=== PATIENT | female | born 1995 | race African-American/Black ===

== ENCOUNTER 2021-05-16 09:37 | Inpatient (IN) | payer OTHER, SELFPAY ==
--- NOTE | 2021-05-15 15:21 | PC.NURSE ---
VERIFIED WITH OR SCHEDULE AND PATIENT--C/S 05/16/21 AT 1200 PATIENT INSTRUCTED TO COME TO OB AT 0930 TOMORROW TO HAVE PRE-OP LAB DRAWN BEFORE SURGERY
[2021-05-16] VITALS (41 sets, daily range): BP systolic 74–123; BP diastolic 43–94; PULSE 42–100; RESP 13–18; TEMP 36.1–36.8; O2SAT 100; BMI 41.6
--- NOTE | 2021-05-16 09:37 | LDADM ---
This patient, Nevaeh Bains, was admitted to Labor/Delivery/Recovery 119 on 05/16/21 at 09:37. Plans for labor, pain management and were discussed with patient. Patient/family oriented to hospital policies and general routines including ID bracelet, bed and alarms, visiting hours, pain management, procedures, bathroom and other care routines, personal items, smoking policy, room service/diet and guest tray routines, infant security routines, and visiting hours. Patient/Family are encouraged to report perceived risks to care and to ask questions if they do not understand what they are told or what they should do. See OBIX for further documentation.
[2021-05-16] MEDS: LACTATED RINGERS 1,000 ML 125 ML IV CONT ×2 (10:20→12:24)
[2021-05-16 10:24] LABS: Basophils Percent Auto 0.4 % (0.2-1.2); Eosinophils Percent Auto 0.7 % (0-4.4); Hematocrit 32.5 % (37.0-47.0); Hemoglobin 10.7 g/dL (12.0-15.0); Immature Granulocyte Absolute 0.04 K/mm3 (0.00-0.031); Immature Granulocyte Percent A 0.7 % (0-0.5); Lymphocytes Absolute Auto 1.31 K/mm3 (0.9-3.2); Lymphocytes Percent Auto 23.6 % (18.3-44.2); Mean Corpuscular HGB Conc 32.9 g/dl (32-36); Mean Corpuscular Hemoglobin 26.5 pg (26-34); Mean Corpuscular Volume 80.4 fl (80-100); Mean Platelet Volume 11.7 fl (7.4-10.4); Monocytes Absolute Auto 0.6 K/mm3 (0.1-0.6); Monocytes Percent Auto 9.9 % (2.6-8.5); Neutrophils Absolute Auto 3.6 K/mm3 (1.3-6.7); Neutrophils Percent Auto 64.7 % (45.5-73.1); Platelet Count Result 170 k/mm3 (150-375); Red Blood Count 4.04 M/mm3 (4.2-5.4); Red Cell Distribution Width 13.4 % (11.5-14.5); White Blood Count 5.6 K/mm3 (4.5-10.0)
--- NOTE | 2021-05-16 10:37 | P.PNAN_ITS ---
Anes - Initial Pre Proc Eval Procedure: Operation Date: 05/16/21 12:00 Proposed Procedures p Section - Chin Garcia MD Date/Time: 05/16/21 10:37 Surgeon: Chin Garcia MD Pre Op Diagnosis: c/s Patient Data Age: 25 Gender: F Height: 1.65 m Weight: 113.5 kg Last Vital Signs Pulse 72 05/16/21 10:31 BP 123/75 05/16/21 10:31 Allergies Allergy/AdvReac Type Severity Reaction Status Date / Time No Known Allergies Allergy Verified 05/15/21 14:44 Laboratory Tests 05/16/21 05/16/21 10:15 10:15 WBC 5.6 K/mm3 K/mm3 (4.5-10.0) RBC 4.04 M/mm3 L M/mm3 (4.2-5.4) Hgb 10.7 g/dL L g/dL (12.0-15.0) Hct 32.5 % L % (37.0-47.0) MCV 80.4 fl fl (80-100) MCH 26.5 pg pg (26-34) MCHC 32.9 g/dl g/dl (32-36) RDW 13.4 % % (11.5-14.5) Plt Count 170 k/mm3 k/mm3 (150-375) MPV 11.7 fl H fl (7.4-10.4) Immature Gran % (Auto) 0.7 % H % (0-0.5) Neut % (Auto) 64.7 % % (45.5-73.1) Lymph % (Auto) 23.6 % % (18.3-44.2) [place] % (Auto) 9.9 % H % (2.6-8.5) Eos % (Auto) 0.7 % % (0-4.4) Baso % (Auto) 0.4 % % (0.2-1.2) Lymph # (Auto) 1.31 K/mm3 K/mm3 (0.9-3.2) [place] # (Auto) 0.6 K/mm3 K/mm3 (0.1-0.6) Eos # (Auto) 0.0 K/mm3 K/mm3 (0-0.3) Baso # (Auto) 0.0 K/mm3 K/mm3 (0.0-0.1) Abs Immat Gran (auto) 0.04 K/mm3 H K/mm3 (0.00-0.031) Absolute Neuts (auto) 3.6 K/mm3 K/mm3 (1.3-6.7) Absolute Nucleated RBC 0.0 K/mm3 K/mm3 (0.0-0.012) Nucleated RBC % 0.0 % % (0.0-0.2) RPR Pending Patient hx anesthesia problems: none Family hx anesthesia problems: none [facility] Past Medical History Medical History (Updated 05/16/21 @ 10:37 by Jesu Thomas MD) Obesity Surgical History Surgical History (Updated 05/16/21 @ 10:37 by Jesu Thomas MD) History of section Family History Family History Other No pertinent family history Social History Social History Substance use: never Spiritual care concerns: No Anes - Eval Final PreProcedure Day of Procedure 05/16/21 10:37 Patient weight: obese Heart: regular rate and rhythm Lungs: clear to auscultation Airway: Mallampati scale class 1 Neurological: alert and oriented Last oral intake: >/= 8 hours ASA classification: II Emergent: no Anesthetic plan: proceed Anesthesia type and monitoring: regional spinal and standard monitoring Informed Consent: The patient's anesthetic plan and its attendant risks and benefits were discussed with the patient/family/POA. Questions were solicited and answers provided to the satisfaction of the patient/family/POA.
--- NOTE | 2021-05-16 10:57 | PM.IMHP ---
H&P: HPI History of Present Illness Date/Time: 05/16/21 10:57This patient is a 25-year-old multi did at term with a previous delivery. We have agreed to perform repeat delivery. She understands the procedure. She understands that injuries may occur that result in hospitalization, more surgery, severe illness. She denies any nausea, vomiting, fever, chills. She denies any chest pain or shortness of breath. She denies any loss of fluid, vaginal bleeding, contractions. Chief Complaint: Term Review of Systems Constitutional: Constitutional: Reports no additional constitutional complaints, Denies fatigue, Denies headache(s), Denies lethargy and Denies weakness Eyes: Eyes: Reports no additional eye complaints, Denies blurry vision and Denies photophobia ENT: Reports as per HPI, Denies headache(s) and Denies neck pain Cardiovascular: Cardiovascular: Denies chest pain, Denies diaphoresis, Denies leg edema, Denies palpitations and Denies dyspnea Respiratory: Respiratory: Denies hemoptysis, Denies dyspnea and Denies wheezing Gastrointestinal: Gastrointestinal: Denies abdominal pain, Denies melena, Denies bloating, Denies hematochezia, Denies nausea and Denies vomiting Genitourinary: Genitourinary: Reports no additional female genitourinary complaints Musculoskeletal: Musculoskeletal: Denies joint swelling, Denies neck pain, Denies numbness and Denies stiffness Neurologic: Denies Abnormal speech present, Denies confusion, Denies headache(s), Denies numbness and Denies weakness Psychiatric: Psychiatric: Denies anxiety, Denies confusion, Denies depression, Denies homicidal ideation and Denies suicidal ideation Endocrine: Endocrine: Denies fatigue and Denies palpitations Allergic/Immunologic: Allergic/Immunologic: Denies wheezing PMFSH Past Medical History Medical History (Updated 05/16/21 @ 10:37 by Jesu Thomas MD) Obesity Surgical History Surgical History (Updated 05/16/21 @ 10:59 by Chin Garcia MD) History of section Family History Family History Other No pertinent family history Social History Social History Smoking status: Former smoker Substance use: never Spiritual care concerns: No Meds Home Medications and Allergies Allergies Allergy/AdvReac Type Severity Reaction Status Date / Time No Known Allergies Allergy Verified 05/15/21 14:44 Vital Signs Vital Signs - 24 hr 05/16/21 10:16 05/16/21 10:31 05/16/21 10:45 Pulse Rate 70 72 64 Blood Pressure 120/68 123/75 117/77 Exam Const: General: healthy appearing, comfortable and no acute distress; No confusion Orientation/consciousness: No confusion Eyes: Direct Ophthalmoscopy: No photophobia Resp: Auscultation: clear to auscultation bilaterally, no rales, no rhonchi and no wheezes Cardio: Rate: regular rate Heart sounds: no click, no murmurs and no rubs GI: Inspection: non-distended GI Palp: No abdominal tenderness Auscultation: normal bowel sounds Neuro: General: No confusion Speech: No Abnormal speech present Extrem: General: normal to inspection, no pedal edema and no calf tenderness H&P: Results Labs Labs: Short CBC 05/16/21 Range/Units 10:15 WBC 5.6 (4.5-10.0) K/mm3 Hgb 10.7 L (12.0-15.0) g/dL Hct 32.5 L (37.0-47.0) % Plt Count 170 (150-375) k/mm3 Assessment and Plan Assessment and plan (1) Previous section: Code(s): Z98.891 - History of uterine scar from previous surgery Status: Acute Assessment and Plan: this patient is a 25-year-old female with previous delivery. She has a term gestation we have agreed to perform repeat delivery. She understands the risks, benefits, and alternatives. She has completed the informed consent process and is ready to proceed.
--- NOTE | 2021-05-16 11:00 | WPDHPUPDATE1 ---
History and Physical Update Update Date/Time: 05/16/21 11:00 History and Physical has been reviewed, including an updated exam of the patient. There are NO changes in the patient's condition. Risks, benefits, and alternatives have been discussed and questions answered. Patient agrees to proceed with procedure.
[2021-05-16] MEDS: ceFAZolin 2 GM/D5W 50 ML 2 GM/50 ML BAG IVPB (11:09)
--- NOTE | 2021-05-16 12:21 | W.PM.PROC2 ---
Procedure Note - Detailed Date of Procedure 05/16/21 Pre-op Diagnosis previous LTCS Post-op Diagnosis same Procedure Performed Low-transverse section Surgeon Chin Garcia MD Anesthesia spinal Indications previous LTCS, term Findings Normal gestational maternal anatomy, average size infant, normal Apgars. Description of Procedure The patient was taken the operating room. She was prepped and draped in dorsal supine position with a leftward tilt. This was done after spinal anesthetic was applied. A low-transverse skin incision was made and carried down till of the fascia with the knife. The fascial incision was made with the knife. The fascial incision was extended laterally with Hooper scissors. The fascia was tented upward superiorly and inferiorly the rectus muscles were dissected off bluntly. The rectus muscles were the midline. The preperitoneal fat and peritoneum were dissected open bluntly at the superior aspect of the rectus muscles. The peritoneal incision was extended superior and inferior with good position of bladder. The uterine incision was made with a scalpel down to the level of the amniotic cavity. The amniotic cavity was entered bluntly. The infant was delivered. The cord was clamped and cut and the infant was handed off to waiting pediatric staff. Cord bloods were obtained. The placenta was removed manually. The uterus was exteriorized. The uterus was cleared of all clots, debris and membranes. The uterus was closed in 0 Vicryl running lock fashion. An imbricating over a was placed along the incision line as well. The uterus was returned to the abdomen. The gutters were cleared of all clots and debris. The fascia was closed with 0 Vicryl running fashion. The subcutaneous tissue was irrigated pinpoint bleeders were cauterized. The skin was closed with subcuticular absorbable lindsay. The skin incision line was covered with glue. The patient tolerated the procedure well. She has taken recovery room in stable condition. Sponge lap and needle counts were correct x2. Estimated Blood Loss 600 Drains No Packing No Pathology none sent Complications No immediate complications Condition stable Disposition PACU
[2021-05-16] MEDS: KETOROLAC 30 MG/ML VIAL (*BKC) IV PUSH (12:43)
[2021-05-16] MEDS: diphenhydrAMINE HCl INJ 50 MG/ML VIAL 25 MG IV PUSH (13:19)
[2021-05-16] MEDS: OXYTOCIN 30 UNITS/NS 500 ML 30 UNITS/500 ML BAG 125 UNITS IV CONT (14:35)
[2021-05-16] MEDS: DEXTROSE 5%/0.45% SOD CHL 1,000 ML 125 ML IV CONT (14:35)
--- NOTE | 2021-05-16 14:35 | PC.NURSE ---
PT arrived on unit via stretcher alert and awake accompanied by fob and infant and taken to room 276. PT oriented to room and surrounding area. PT introductions made and plan of care discussed per post op c section, pain management, daily care activities bottle feeding. PT and fob both recipients and received such instructions per one to one discussion, mom baby care guide and demonstration. No barriers to learning identified. Welcome packet reviewed and discussed. PT verbalized understanding of such care. PT transferred to bed via maxi air without difficulty.
[2021-05-16] MEDS: SIMETHICONE 80 MG TAB.CHEW PO (18:52)
[2021-05-16] MEDS: ACETAMINOPHEN 325 MG TABLET 650 MG PO (18:52)
[2021-05-16] MEDS: IBUPROFEN 600 MG TABLET PO ×2 (18:53→23:36)
[2021-05-16] MEDS: HYDROcodone/acetaminophen (*CRX) 5-325 MG TABLET 1 TAB PO (23:35)
[2021-05-17 04:00] VITALS: BP 122/50; PULSE 62; RESP 18; TEMP 36.6
[2021-05-17] MEDS: HYDROcodone/acetaminophen (*CRX) 5-325 MG TABLET 1 TAB PO ×3 (04:57→12:26)
[2021-05-17] MEDS: IBUPROFEN 600 MG TABLET PO ×3 (04:58→18:16)
[2021-05-17 05:04] LABS: Basophils Percent Auto 0.1 % (0.2-1.2); Hematocrit 29.3 % (37.0-47.0); Hemoglobin 9.6 g/dL (12.0-15.0); Immature Granulocyte Absolute 0.07 K/mm3 (0.00-0.031); Immature Granulocyte Percent A 0.5 % (0-0.5); Lymphocytes Absolute Auto 0.97 K/mm3 (0.9-3.2); Lymphocytes Percent Auto 7.6 % (18.3-44.2); Mean Corpuscular HGB Conc 32.8 g/dl (32-36); Mean Corpuscular Hemoglobin 26.5 pg (26-34); Mean Corpuscular Volume 80.9 fl (80-100); Mean Platelet Volume 12.1 fl (7.4-10.4); Neutrophils Absolute Auto 10.7 K/mm3 (1.3-6.7); Neutrophils Percent Auto 83.8 % (45.5-73.1); Platelet Count Result 148 k/mm3 (150-375); Red Blood Count 3.62 M/mm3 (4.2-5.4); Red Cell Distribution Width 13.2 % (11.5-14.5); White Blood Count 12.8 K/mm3 (4.5-10.0)
[2021-05-17 07:25] VITALS: BP 102/60; PULSE 60; RESP 18; TEMP 36.6; O2SAT 100
--- NOTE | 2021-05-17 08:04 | P.PNOB_ITS ---
OB - PN: Subj Subjective Date/time seen: 05/17/21 08:04 Patient comments: no complaints, pain well controlled, tolerating diet and flatus present OB - PN: Obj Data Labs CBC & Chem 7: 05/17/21 04:05 Labs: Laboratory Results - last 24 hr 05/16/21 05/16/21 05/17/21 10:15 10:15 04:05 WBC 5.6 12.8 H RBC 4.04 L 3.62 L Hgb 10.7 L 9.6 L Hct 32.5 L 29.3 L MCV 80.4 80.9 MCH 26.5 26.5 MCHC 32.9 32.8 RDW 13.4 13.2 Plt Count 170 148 L MPV 11.7 H 12.1 H Immature Gran % (Auto) 0.7 H 0.5 Neut % (Auto) 64.7 83.8 H Lymph % (Auto) 23.6 7.6 L [place] % (Auto) 9.9 H 8.0 Eos % (Auto) 0.7 0.0 Baso % (Auto) 0.4 0.1 L Lymph # (Auto) 1.31 0.97 [place] # (Auto) 0.6 1.0 H Eos # (Auto) 0.0 0.0 Baso # (Auto) 0.0 0.0 Abs Immat Gran (auto) 0.04 H 0.07 H Absolute Neuts (auto) 3.6 10.7 H Absolute Nucleated RBC 0.0 0.0 Nucleated RBC % 0.0 0.0 Blood Type O Positive Antibody Screen Negative OB - PN A/P Plan day: 1 Comments: Post Op LTCS - no problems, routine recovery Time Spent With Patient Time: Total time spent is greater than 50% in coordination of care (as documented) at patient's floor/unit and/or counseling patient: Exam Const: General: cooperative, healthy appearing, comfortable and no acute distress Resp: Auscultation: no crackles, no rales, no rhonchi and no wheezes Cardio: Rhythm: regular rhythm Heart sounds: no click and no murmurs GI: Inspection: non-distended Auscultation: normal bowel sounds Extrem: General: normal to inspection, no pedal edema and no calf tenderness
[2021-05-17 09:06] LABS: Rapid Plasma Reagin Non-Reactive (NonReactive)
[2021-05-17] MEDS: MULTIVIT/MIN/PREN/FOL AC/IRON TABLET 1 TAB PO (09:34)
--- NOTE | 2021-05-17 09:55 | PC.NURSE ---
Consult with pt., mother stated she was bottle feeding and now wishes to attempt to breast. Mother attempted first child to breast with latch difficulties and quickly switched to bottle feeding. is able to freely thrust tongue past gum ridge and flange both lips. Reviewed infant feeding cues, frequencies, duration of feedings, feeding elimination flow sheet, and signs of adequate intake. Demonstrated stimulation techniques to wake for feeding. Assisted with infant to breast. Reviewed positioning/alignment in football, holding breast in ?C? hold and guided asymmetrical latch on. Discussed rational for each. Infant able to latch correctly. nursed eagerly with steady draws for short bursts and pulling off breast. was eager to return to breast. Reviewed signs of a correct latch, effective nursing and suck swallow ratio. Mother voices frustration is not latching. Assured mother this is infant's first time at breast, and may take several feedings before she is maintaining latch. Suggested mother put to breast each feeding then follow up with supplementation, until infant is able to latch and maintain latch. Nipple care reviewed of lanolin after feedings, warm compresses as needed. Instructed mother to call out for RN assistance if she is unable to latch infant for feeding or she has discomfort with nursing.
--- NOTE | 2021-05-17 12:14 | WPDANLDNPN2 ---
Anes-Prog Note L&D-Neuraxial Date/Time: 05/17/21 12:14 Neuraxial medications: intrathecal PF morphine Opiod-related complaints: none Patient feedback: Patient satisfied with post-operative pain management.
--- NOTE | 2021-05-17 12:14 | WPDANLDPN2 ---
Anes-Prog Note L&D Date/Time: 05/17/21 12:14 Comfortable throughout: section Neuraxial method: spinal Epidural/Spinal procedure site: clean & non-tender Neuro status: Neuro function grossly intact. Cardiovascular status: normal Respiratory status: normal Airway patency: baseline Mental status: baseline Post-Op hydration status: normal Vital Signs: Last Vital Signs Temp 36.6 C 05/17/21 07:25 Pulse 60 05/17/21 07:25 Resp 18 05/17/21 07:25 BP 102/60 05/17/21 07:25 Pulse Ox 100 05/17/21 07:25 Pain score (VAS): 2 I/O: Intake & Output 05/16/21 05/17/21 05/17/21 23:59 07:59 15:59 Intake Total 1000 1500 Output Total 600 1000 Balance 400 500 Post-procedural complaints: none Patient feedback: Patient satisfied with anesthetic care.
[2021-05-17] MEDS: HYDROcodone/acetaminophen (*CRX) 10-325 MG TABLET 1 TAB PO (18:17)
--- NOTE | 2021-05-17 18:54 | PC.NURSE ---
This patient, Nevaeh Bains, was received from Level 2 nursery on 05/17/21 at 1853. Patient/family oriented to unit policies and routines
[2021-05-17 19:29] VITALS: BP 115/59; PULSE 71; RESP 16; TEMP 36.3; O2SAT 71
[2021-05-17] MEDS: SIMETHICONE 80 MG TAB.CHEW PO (20:30)
[2021-05-18] MEDS: IBUPROFEN 600 MG TABLET PO ×2 (00:12→10:16)
[2021-05-18] MEDS: HYDROcodone/acetaminophen (*CRX) 10-325 MG TABLET 1 TAB PO (00:12)
[2021-05-18] MEDS: SIMETHICONE 80 MG TAB.CHEW PO ×3 (00:12→10:16)
[2021-05-18] MEDS: HYDROcodone/acetaminophen (*CRX) 5-325 MG TABLET 1 TAB PO ×2 (05:50→10:16)
[2021-05-18 07:30] VITALS: BP 117/73; PULSE 63; RESP 16; TEMP 36.7
--- NOTE | 2021-05-18 07:39 | P.PNOB_ITS ---
OB - PN: Subj Subjective Date/time seen: 05/18/21 07:39 Patient comments: no complaints baby status: doing well OB - PN: Obj Data Labs CBC & Chem 7: 05/17/21 04:05 Labs: Laboratory Results - last 24 hr 05/16/21 10:15 RPR Non-reactive OB - PN A/P Plan day: 2 Plan: routine care and discharge home Time Spent With Patient Time: Total time spent is greater than 50% in coordination of care (as documented) at patient's floor/unit and/or counseling patient: Review of Systems Review of Systems: All systems reviewed & are unremarkable except as noted in HPI and below Exam Narrative: Incision CDI Const: General: cooperative and healthy appearing Psych: Affect: normal affect Attitude: cooperative Thought process: Normal thought process present Thought content: Yes Normal thought content pr esent Insight: Good insight present (Psych)
--- NOTE | 2021-05-18 07:41 | P.DS_ITS ---
DS: Admitting Diagnosis Admitting Diagnosis rpt OB - DS: Summary OB Procedures : None OB Procedures Intrapartum: OB Procedures: : None Peripartum Data Procedures: Procedures Operation Date: 05/16/21 12:00 Actual Procedure Side Surgeon p Section Chin Garcia MD Time Spent with Patient Time attestation: Total time spent providing and/or coordinating discharge services: DS: Data Data Completed and Pending Labs on day of discharge: Labs from last 24 hours 05/16/21 10:15 RPR Non-reactive Discharge Plan Discharge Attending physician on discharge: Chin Garcia Discharging Clinician: Maxine Montalvo Patient Disposition: Home, Self-Care Activity: pelvic rest Diet: regular Patient Instructions: Antibiotic Form Stand Alone Forms: General Discharge Information Follow-up/Referrals: Chin Garcia MD [Physician] - 1 Week Discharge Medications: New hydrocodone-acetaminophen 5-325 mg Tablet 1 tablet PO Q3H PRN (Reason: Moderate Pain (4-6)) Qty: 20 RF: 0 polysaccharide iron complex 150 mg iron Capsule 150 mg PO BIDWM Qty: 60 RF: 0 Date of admission: 05/16/21 09:37 Primary Care Provider: PHYSICIAN,[employer] Admitting Provider: Chin Garcia Attending physician on admission: Chin Garcia Condition: Stable
[2021-05-18 08:00] VITALS: BP 125/66; PULSE 57; RESP 16; TEMP 36.6; O2SAT 100
[2021-05-19 09:54] VITALS: BP 122/71; PULSE 60; RESP 20; TEMP 37.4; O2SAT 100
== END 2021-05-18 11:55 | disposition home or self-care (01) | DRG 540 ==
LOC: ANHLDR 09:43 → ANHOB2 15:14
PROVIDERS: Admitting Provider Obstetrics & Gynecology; Visit Provider Obstetrics & Gynecology
PROC: 10D00Z1 Extraction of Products of Conception, Low, Open Approach (ICD-10-PCS; CPT 59514; principal; 2021-05-16 12:00)
DX: O34.211 Maternal care for low transverse scar from previous cesarean delivery (principal); Z37.0 Single live birth; Z3A.39 39 weeks gestation of pregnancy; O99.214 Obesity complicating childbirth; E66.9 Obesity, unspecified
CPT/HCPCS: 36415; 85025; 86592; 86850; 86900; 86901; A9270; J0131; J0690; J1100; J1200; J1885; J2274; J2405; J2590; J7120